=== PATIENT | male | born 1945 | race Caucasian/White ===

== ENCOUNTER 2022-02-10 04:08 | Emergency (ER) | payer OTHER ==
[~2022-02-10] VITALS: Ht 157.5 cm; Wt 63.5 kg
--- NOTE | 2022-02-10 04:48 | NUR ---
[facility] HOME C/O ABDOMINAL CRAMPS AND DIARRHEA X 5DAYS TOOK MYLENTA, PEPTO BISMOL, AND MILK OF MAG. PATIENT ALERT AND ORIENTED X3. AMBULATORY WITH NON LABORED BREATHING IN BED 03 AWAITING MD KHOURY.
--- NOTE | 2022-02-10 05:07 | NUR ---
URINE COLLECTED AND SENT TO LAB
--- NOTE | 2022-02-10 05:08 | NUR ---
SERVICE TECH AT PT'S BEDSIDE
--- NOTE | 2022-02-10 05:17 | NUR ---
PT TAKEN TO CT VIA J[facility]
[2022-02-10 05:20] LABS: BASOPHILS % (AUTO) 0.4 % (0.0-2.0); EOSINOPHILS % (AUTO) 5.2 % (0.0-6.0); HEMATOCRIT 43 % (39-51); HEMOGLOBIN 14.7 g/dL (13.5-17.5); LYMPHOCYTES # (AUTO) 1.9 K/uL (0.8-4.8); LYMPHOCYTES % (AUTO) 29.7 % (20.0-44.0); MEAN CORPUSCULAR HGB CONC 34 g/dl (31.0-36.0); MEAN CORPUSCULAR VOLUME 86 fL (80-96); MONOCYTES # (AUTO) 0.5 K/uL (0.1-1.30); NEUTROPHILS # (AUTO) 3.6 K/uL (1.8-8.9); NEUTROPHILS % (AUTO) 56.7 % (43.0-81.0); PLATELET COUNT (AUTO) 170 K/uL (150-450); RED BLOOD CELL COUNT(AUTO) 5.04 MIL/uL (4.5-6.0); WHITE BLOOD COUNT (AUTO) 6.4 K/uL (4.3-11.0)
[2022-02-10 05:21] LABS: BILIRUBIN,URINE NEGATIVE (NEGATIVE); COLOR,URINE YELLOW (YELLOW); LEUKOCYTE ESTERASE ,URINE NEGATIVE (NEGATIVE); NITRITE, URINE NEGATIVE (NEGATIVE); PROTEIN,URINE NEGATIVE (NEGATIVE); UGLUCOSE NEGATIVE (NEGATIVE); UROBILINOGEN,URINE 0.2 EU/dL (0.2)
[2022-02-10 05:49] LABS: ALANINE AMINOTRANSFERASE 36 U/L (12-78); ALBUMIN 4.1 g/dL (3.4-5.0); ALKALINE PHOSPHATASE 78 U/L (46-116); ASPARTATE AMINOTRANSFERASE 25 U/L (15-37); BILIRUBIN,DIRECT 0.2 mg/dL (0.0-0.2); BILIRUBIN,TOTAL 0.6 mg/dL (0.2-1.0); CALCIUM, SERUM 9.4 mg/dL (8.5-10.1); GLUCOSE 184 mg/dL (74-106); LIPASE 106 U/L (73-393); TOTAL PROTEIN, SERUM 8.3 g/dL (6.4-8.2); UREA NITROGEN, BLOOD 20 mg/dL (7-18)
[2022-02-10 05:58] LABS: POTASSIUM 3.9 mmol/L (3.5-5.1); SODIUM SERUM 136 mmol/L (136-145)
[2022-02-10 05:59] LABS: CARBON DIOXIDE 31 mmol/L (21-32); CHLORIDE 100 mmol/L (98-107)
[2022-02-10] MEDS ORDERED: AMOX-430 PO ×2 (08:23→08:36)
--- NOTE | 2022-02-10 09:03 | NUR ---
Patient discharged to home in stable condition. Written and verbal after care instructions given. Patient verbalizes understanding of instruction.
[2022-02-10 09:07] VITALS: BP 130/80
== END 2022-02-10 09:08 | disposition home or self-care (01) ==
LOC: ER 04:33
DX: R10.9 Unspecified abdominal pain (principal); Z60.2 Problems related to living alone; Z79.899 Other long term (current) drug therapy
CPT/HCPCS: 99284; 74176; 85025; 80048; 83690; 80076; 81003; 36415; J7030